=== PATIENT | male | born 1990 | race Caucasian/White ===

== ENCOUNTER 2016-11-26 13:59 | Inpatient (IN) | payer OTHER ==
[~2016-11-26] VITALS: Ht 175.3 cm; Wt 59.4 kg
[~2016-11-26 13:59] MED LIST: BG MC; GLU850 PO; LAC PO; LEV500 PO; LEVEMIR100 U/M1 SQ
[2016-11-26 14:55] LABS: RED CELL DISTRIBUTION WIDTH 13.5 % (11.5-14.5)
[2016-11-26 15:26] LABS: BASOPHIL % 0 % (0-2); PLATELET COUNT 410 x10^3mcL (130-400)
[2016-11-26 15:28] LABS: ALKALINE PHOSPHATASE 192 U/L (46-116); ALT/SGPT 16 U/L (16-63); AST/SGOT 17 U/L (15-37); CALCIUM 8.7 mg/dL (8.5-10.1); CHLORIDE SERUM 87 mmol/L (98-107); CREATININE SERUM 0.9 mg/dL (0.7-1.3); GFR1 > 60 mL/min; MAGNESIUM 1.6 mg/dL (1.8-2.4); POTASSIUM SERUM 3.7 mmol/L (3.5-5.1); TOTAL PROTEIN, SERUM 7.2 g/dL (6.4-8.2)
[2016-11-26 15:29] LABS: ALBUMIN 2.8 g/dL (3.4-5.0)
[2016-11-26 15:31] LABS: GLUCOSE SERUM 504 mg/dL (74-106); SODIUM SERUM 122 mmol/L (136-145)
[2016-11-26 15:40] LABS: CK-MB 0.7 ng/mL (0-3.6)
[2016-11-26] MEDS ORDERED: NOVI SQ (17:27)
[2016-11-26 18:30] VITALS: BP 119/67
[2016-11-26 18:35] VITALS: Ht 175.3 cm; Wt 59.4 kg
[2016-11-26 18:36] LABS: T3 TOTAL 0.61 ng/mL
[2016-11-26 18:38] LABS: FREE T4 1.8 ng/dL (0.76-1.46); FREE THYROXINE INDEX 2.7 ug/dL (1.4-4.5); T4(THYROXINE) 7.1 ug/dL (4.7-13.3)
[2016-11-26 19:06] VITALS: BP 119/69
[2016-11-26 19:06] LABS: CHOLESTEROL/HDL RATIO 2.5
[2016-11-26 19:19] VITALS: BP 125/71
[2016-11-26 22:14] VITALS: BP 114/75
[2016-11-27 06:05] VITALS: BP 109/61
[2016-11-27 06:27] LABS: CALCIUM 7.8 mg/dL (8.5-10.1); CARBON DIOXIDE 26.1 mmol/L (21-32); CHLORIDE SERUM 101 mmol/L (98-107); CREATININE SERUM 0.6 mg/dL (0.7-1.3); GFR1 > 60 mL/min; GLUCOSE SERUM 298 mg/dL (74-106); MAGNESIUM 2.4 mg/dL (1.8-2.4); PHOSPHOROUS 3.1 mg/dL (2.5-4.9); POTASSIUM SERUM 3.2 mmol/L (3.5-5.1); SODIUM SERUM 136 mmol/L (136-145)
[2016-11-27 06:29] LABS: BASOPHIL % 0.2 % (0-2); PLATELET COUNT 357 x10^3mcL (130-400); RED CELL DISTRIBUTION WIDTH 13.6 % (11.5-14.5)
[2016-11-27 08:15] VITALS: BP 99/57
[2016-11-27 12:25] VITALS: BP 104/55
[2016-11-27 16:35] VITALS: BP 101/54
[2016-11-27 20:45] VITALS: BP 111/52
[2016-11-28 05:45] VITALS: BP 104/54
[2016-11-28 06:03] LABS: BASOPHIL % 0.3 % (0-2); PLATELET COUNT 339 x10^3mcL (130-400); RED CELL DISTRIBUTION WIDTH 13.8 % (11.5-14.5)
[2016-11-28 06:49] LABS: CALCIUM 7.5 mg/dL (8.5-10.1); CHLORIDE SERUM 103 mmol/L (98-107); CREATININE SERUM 0.6 mg/dL (0.7-1.3); GFR1 > 60 mL/min; GLUCOSE SERUM 284 mg/dL (74-106); MAGNESIUM 2.2 mg/dL (1.8-2.4); PHOSPHOROUS 3.7 mg/dL (2.5-4.9); POTASSIUM SERUM 3.5 mmol/L (3.5-5.1); SODIUM SERUM 138 mmol/L (136-145)
[2016-11-28 08:34] LABS: microscopic required? NO
[2016-11-28 09:00] VITALS: BP 107/62
[2016-11-28 09:46] LABS: urine erythrocyte NEGATIVE (NEGATIVE)
[2016-11-28 09:55] LABS: AMPHETAMINE QUAL UR POSITIVE (NEG <=1000)
[2016-11-28 13:00] VITALS: BP 118/66
[2016-11-28 17:54] VITALS: BP 119/61
[2016-11-28 22:08] VITALS: BP 107/57
[2016-11-29 06:15] VITALS: BP 110/60
[2016-11-29 06:52] LABS: BASOPHIL % 0.7 % (0-2); PLATELET COUNT 399 x10^3mcL (130-400); RED CELL DISTRIBUTION WIDTH 14.1 % (11.5-14.5)
[2016-11-29 07:07] LABS: CALCIUM 7.3 mg/dL (8.5-10.1); CARBON DIOXIDE 24.4 mmol/L (21-32); CHLORIDE SERUM 100 mmol/L (98-107); CREATININE SERUM 0.5 mg/dL (0.7-1.3); GFR1 > 60 mL/min; GLUCOSE SERUM 291 mg/dL (74-106); MAGNESIUM 1.6 mg/dL (1.8-2.4); PHOSPHOROUS 2.9 mg/dL (2.5-4.9); POTASSIUM SERUM 3.4 mmol/L (3.5-5.1); SODIUM SERUM 133 mmol/L (136-145)
== END 2016-11-29 09:21 | disposition left against medical advice (07) | DRG 720 ==
LOC: ED 13:59 → DU 16:38 → MU 11-28 18:03
PROVIDERS: Emergency Medicine; Family Medicine; ADMIT Family Medicine
DX: A41.9 Sepsis, unspecified organism (principal); J96.00 Acute respiratory failure, unspecified whether with hypoxia or hypercapnia; R65.21 Severe sepsis with septic shock; E11.00 Type 2 diabetes mellitus with hyperosmolarity without nonketotic hyperglycemic-hyperosmolar coma (NKHHC); E43 Unspecified severe protein-calorie malnutrition; R64 Cachexia; E11.622 Type 2 diabetes mellitus with other skin ulcer; L03.317 Cellulitis of buttock; L98.419 Non-pressure chronic ulcer of buttock with unspecified severity; E11.65 Type 2 diabetes mellitus with hyperglycemia; Z79.4 Long term (current) use of insulin; E87.3 Alkalosis; E87.1 Hypo-osmolality and hyponatremia; Z68.1 Body mass index [BMI] 19.9 or less, adult; N13.30 Unspecified hydronephrosis; N28.1 Cyst of kidney, acquired; E83.42 Hypomagnesemia; E87.6 Hypokalemia; Z88.0 Allergy status to penicillin; Z83.3 Family history of diabetes mellitus; Z82.49 Family history of ischemic heart disease and other diseases of the circulatory system; F17.210 Nicotine dependence, cigarettes, uncomplicated; D64.9 Anemia, unspecified
CPT/HCPCS: 36600; 80307; 82962; 83880; 84439; 90715; 94150; J1815; J1885; J1956; J2060; J2270; J2405; J3370; J3475; J3490; J7030; Q0092; Q9967

== ENCOUNTER 2016-12-05 21:06 | Inpatient (IN) | payer OTHER ==
[~2016-12-05] VITALS: Ht 177.8 cm; Wt 54.4 kg
[~2016-12-05 21:06] MED LIST changes: +NOVI SQ
[2016-12-05 22:51] LABS: PLATELET COUNT 686 x10^3mcL (130-400)
[2016-12-05 22:57] LABS: CK-MB 0.7 ng/mL (0-3.6)
[2016-12-05 23:09] LABS: ALKALINE PHOSPHATASE 173 U/L (46-116); ALT/SGPT 14 U/L (16-63); AST/SGOT 11 U/L (15-37); CARBON DIOXIDE 21.6 mmol/L (21-32); CHLORIDE SERUM 96 mmol/L (98-107); CREATININE SERUM 0.9 mg/dL (0.7-1.3); GFR1 > 60 mL/min; POTASSIUM SERUM 4.2 mmol/L (3.5-5.1); SODIUM SERUM 127 mmol/L (136-145)
[2016-12-05 23:13] LABS: ALBUMIN 2.7 g/dL (3.4-5.0); ATYPICAL LYMPH 2 %; BAND NEUTROPHIL 5 % (0-10); METAMYELOCTE 1 % (0-2); MONOCYTE 2 % (0-7); MYELOCYTE 1 % (0-2); SEGMENTED NEUTROPHILS 83 % (37-75); TOTAL PROTEIN, SERUM 3.7 g/dL (6.4-8.2)
[2016-12-05 23:14] LABS: rbc morphology (normal/abnorm) NORMAL (NORMAL)
[2016-12-05 23:15] LABS: GLUCOSE SERUM 671 mg/dL (74-106)
[2016-12-06] VITALS (7 sets, daily range): BP systolic 94–111; BP diastolic 53–74
[2016-12-06 02:31] LABS: CHOLESTEROL/HDL RATIO 1.6
[2016-12-06 02:38] LABS: FREE T4 1.42 ng/dL (0.76-1.46); T3 TOTAL 0.77 ng/mL
[2016-12-06 02:58] LABS: FREE THYROXINE INDEX 2.5 ug/dL (1.4-4.5); T4(THYROXINE) 6.8 ug/dL (4.7-13.3)
[2016-12-06 05:45] LABS: RED CELL DISTRIBUTION WIDTH 14.1 % (11.5-14.5)
[2016-12-06 05:55] LABS: BASOPHIL % 0 % (0-2); PLATELET COUNT 611 x10^3mcL (130-400)
[2016-12-06 06:03] LABS: CALCIUM 7.7 mg/dL (8.5-10.1); CARBON DIOXIDE 22.7 mmol/L (21-32); CHLORIDE SERUM 105 mmol/L (98-107); CREATININE SERUM 0.4 mg/dL (0.7-1.3); GFR1 > 60 mL/min; GLUCOSE SERUM 208 mg/dL (74-106); MAGNESIUM 1.6 mg/dL (1.8-2.4); PHOSPHOROUS 2.4 mg/dL (2.5-4.9); POTASSIUM SERUM 3.6 mmol/L (3.5-5.1); SODIUM SERUM 134 mmol/L (136-145)
[2016-12-06 17:52] LABS: UA SPECIFIC GRAVITY >=1.030 (1.005-1.035); urine erythrocyte NEGATIVE (NEGATIVE)
[2016-12-06 18:03] LABS: microscopic required? YES
[2016-12-06 18:12] LABS: AMPHETAMINE QUAL UR POSITIVE (NEG <=1000)
[2016-12-07 06:14] VITALS: BP 102/59
[2016-12-07 09:52] VITALS: BP 95/53
[2016-12-07 13:51] VITALS: BP 95/59
[2016-12-07 17:17] VITALS: BP 96/50
[2016-12-07 21:51] VITALS: BP 93/53
[2016-12-08 05:39] VITALS: BP 104/54
[2016-12-08 06:48] LABS: BASOPHIL % 0.3 % (0-2); RED CELL DISTRIBUTION WIDTH 14.1 % (11.5-14.5)
[2016-12-08 06:50] LABS: CALCIUM 8.1 mg/dL (8.5-10.1); CARBON DIOXIDE 27.4 mmol/L (21-32); CHLORIDE SERUM 103 mmol/L (98-107); CREATININE SERUM 0.5 mg/dL (0.7-1.3); GFR1 > 60 mL/min; GLUCOSE SERUM 315 mg/dL (74-106); MAGNESIUM 1.7 mg/dL (1.8-2.4); PHOSPHOROUS 3.3 mg/dL (2.5-4.9); PLATELET COUNT 641 x10^3mcL (130-400); POTASSIUM SERUM 4.1 mmol/L (3.5-5.1); SODIUM SERUM 139 mmol/L (136-145)
[2016-12-08 08:40] VITALS: BP 91/55
[2016-12-08 17:00] VITALS: BP 101/63
[2016-12-08 21:21] VITALS: BP 108/56
[2016-12-09 06:24] VITALS: BP 100/50
[2016-12-09 06:40] LABS: CALCIUM 7.7 mg/dL (8.5-10.1); CARBON DIOXIDE 28.8 mmol/L (21-32); CHLORIDE SERUM 104 mmol/L (98-107); CREATININE SERUM 0.5 mg/dL (0.7-1.3); GFR1 > 60 mL/min; GLUCOSE SERUM 316 mg/dL (74-106); POTASSIUM SERUM 4.6 mmol/L (3.5-5.1); SODIUM SERUM 139 mmol/L (136-145)
[2016-12-09 06:53] LABS: BASOPHIL % 0.4 % (0-2); RED CELL DISTRIBUTION WIDTH 14.2 % (11.5-14.5)
[2016-12-09 07:16] LABS: PLATELET COUNT 576 x10^3mcL (130-400)
[2016-12-09 10:30] VITALS: BP 93/51
[2016-12-09 19:00] VITALS: BP 97/58
[2016-12-09 21:51] VITALS: BP 94/58
[2016-12-10 05:18] VITALS: BP 90/53
[2016-12-10 06:12] LABS: BASOPHIL % 0.4 % (0-2); CALCIUM 8.2 mg/dL (8.5-10.1); CARBON DIOXIDE 29.7 mmol/L (21-32); CHLORIDE SERUM 107 mmol/L (98-107); CREATININE SERUM 0.4 mg/dL (0.7-1.3); GFR1 > 60 mL/min; GLUCOSE SERUM 64 mg/dL (74-106); POTASSIUM SERUM 3.7 mmol/L (3.5-5.1); RED CELL DISTRIBUTION WIDTH 14.3 % (11.5-14.5); SODIUM SERUM 143 mmol/L (136-145)
[2016-12-10 07:34] LABS: PLATELET COUNT 615 x10^3mcL (130-400)
[2016-12-10 08:35] VITALS: BP 88/47
[2016-12-10 11:25] VITALS: BP 92/58
[2016-12-10 18:42] VITALS: BP 103/64
[2016-12-10 20:31] VITALS: BP 98/59
[2016-12-11 05:54] VITALS: BP 99/60
[2016-12-11 06:08] LABS: BASOPHIL % 0.5 % (0-2)
[2016-12-11 06:19] LABS: CARBON DIOXIDE 30.3 mmol/L (21-32); CHLORIDE SERUM 104 mmol/L (98-107); CREATININE SERUM 0.5 mg/dL (0.7-1.3); GFR1 > 60 mL/min; GLUCOSE SERUM 114 mg/dL (74-106); POTASSIUM SERUM 3.9 mmol/L (3.5-5.1); SODIUM SERUM 139 mmol/L (136-145)
[2016-12-11 06:35] LABS: PLATELET COUNT 544 x10^3mcL (130-400); RED CELL DISTRIBUTION WIDTH 14.7 % (11.5-14.5)
[2016-12-11 09:24] VITALS: BP 95/57
[2016-12-11] MEDS ORDERED: LEV250 PO (09:28)
[2016-12-11] MEDS ORDERED: THERA TABS1 TAB PO (09:29)
[2016-12-11] MEDS ORDERED: CLEOCIN HCL300 MG PO (09:29)
[2016-12-11] MEDS ORDERED: LAC PO (09:30)
[2016-12-11] MEDS ORDERED: VITC PO (09:31)
[2016-12-11] MEDS ORDERED: NORCO1 TA2 PO (09:32)
[2016-12-11] MEDS ORDERED: COL100 PO (09:32)
[2016-12-11 12:12] VITALS: BP 95/57
[2016-12-11] MEDS ORDERED: VIBRAMYCIN HYC100 MG PO (12:47)
== END 2016-12-11 13:40 | disposition home health service (06) | DRG 720 ==
LOC: ED 21:06 → IC 12-06 00:33 → MU 12-06 00:33 → DU 12-06 00:33 → IC 12-06 01:11 → DU 12-06 12:51 → MU 12-07 11:18
PROVIDERS: Emergency Medicine; Surgery; ADMIT Family Medicine
PROC: B543ZZA Ultrasonography of Right Jugular Veins, Guidance (ICD-10-PCS; 2016-12-06)
PROC: 0JB90ZZ Excision of Buttock Subcutaneous Tissue and Fascia, Open Approach (ICD-10-PCS; 2016-12-06)
PROC: 05HM33Z Insertion of Infusion Device into Right Internal Jugular Vein, Percutaneous Approach (ICD-10-PCS; principal; 2016-12-06 11:00)
PROC: 0JB90ZZ Excision of Buttock Subcutaneous Tissue and Fascia, Open Approach (ICD-10-PCS; 2016-12-08)
DX: A41.9 Sepsis, unspecified organism (principal); N17.0 Acute kidney failure with tubular necrosis; M72.6 Necrotizing fasciitis; E43 Unspecified severe protein-calorie malnutrition; D68.69 Other thrombophilia; E11.51 Type 2 diabetes mellitus with diabetic peripheral angiopathy without gangrene; E11.65 Type 2 diabetes mellitus with hyperglycemia; E87.1 Hypo-osmolality and hyponatremia; R65.20 Severe sepsis without septic shock; L02.31 Cutaneous abscess of buttock; F15.10 Other stimulant abuse, uncomplicated; D47.3 Essential (hemorrhagic) thrombocythemia; E83.51 Hypocalcemia; Z83.3 Family history of diabetes mellitus; Z82.49 Family history of ischemic heart disease and other diseases of the circulatory system; Z87.891 Personal history of nicotine dependence
CPT/HCPCS: 36556; 36600; 80307; 82962; 83880; 84439; 94150; J1170; J1580; J1642; J1815; J1956; J2001; J2175; J2250; J2270; J3010; J3370; J3475; J3490; J7030; J7040; J7042; J7050; Q0092

== ENCOUNTER 2016-12-20 21:27 | Emergency (ER) | payer OTHER ==
[~2016-12-20 21:27] MED LIST changes: +CLEOCIN HCL300 MG PO; +COL100 PO; +LEV250 PO; +NORCO1 TA2 PO; +THERA TABS1 TAB PO; +VIBRAMYCIN HYC100 MG PO; +VITC PO
[2016-12-20 22:46] LABS: BASOPHIL % 0.8 % (0-2); PLATELET COUNT 373 x10^3mcL (130-400)
[2016-12-20 22:48] LABS: RED CELL DISTRIBUTION WIDTH 15.8 % (11.5-14.5)
[2016-12-20 22:55] LABS: CALCIUM 7.9 mg/dL (8.5-10.1); CARBON DIOXIDE 28.9 mmol/L (21-32); CHLORIDE SERUM 101 mmol/L (98-107); CREATININE SERUM 0.6 mg/dL (0.7-1.3); GFR1 > 60 mL/min; GLUCOSE SERUM 360 mg/dL (74-106); POTASSIUM SERUM 4.2 mmol/L (3.5-5.1); SODIUM SERUM 134 mmol/L (136-145)
[2016-12-20 22:59] LABS: ALKALINE PHOSPHATASE 127 U/L (46-116); ALT/SGPT 23 U/L (16-63); AST/SGOT 19 U/L (15-37); BILIRUBIN TOTAL 0.19 mg/dL (0.20-1.00)
[2016-12-20 23:00] LABS: ALBUMIN 2.6 g/dL (3.4-5.0); TOTAL PROTEIN, SERUM 5.9 g/dL (6.4-8.2)
[2016-12-21 00:15] VITALS: BP 108/73
== END 2016-12-21 00:15 | disposition home or self-care (01) ==
LOC: ED 21:27
PROVIDERS: Emergency Medicine
DX: L02.31 Cutaneous abscess of buttock (principal); E11.65 Type 2 diabetes mellitus with hyperglycemia; Z79.4 Long term (current) use of insulin; Z87.01 Personal history of pneumonia (recurrent); Z88.0 Allergy status to penicillin
CPT/HCPCS: 82962; J1815; J7030

== ENCOUNTER 2016-12-27 19:10 | Inpatient (IN) | payer OTHER ==
[~2016-12-27] VITALS: Ht 177.8 cm; Wt 63.5 kg
[2016-12-27 23:24] LABS: BASOPHIL % 0.6 % (0-2); PLATELET COUNT 327 x10^3mcL (130-400)
[2016-12-27 23:25] LABS: RED CELL DISTRIBUTION WIDTH 15.4 % (11.5-14.5)
[2016-12-27 23:53] LABS: ALBUMIN 3.1 g/dL (3.4-5.0); ALKALINE PHOSPHATASE 173 U/L (46-116); ALT/SGPT 30 U/L (16-63); AST/SGOT 14 U/L (15-37); BILIRUBIN TOTAL 0.3 mg/dL (0.20-1.00); CALCIUM 8.3 mg/dL (8.5-10.1); CARBON DIOXIDE 30.4 mmol/L (21-32); CHLORIDE SERUM 94 mmol/L (98-107); CREATININE SERUM 0.8 mg/dL (0.7-1.3); GFR1 > 60 mL/min; SODIUM SERUM 133 mmol/L (136-145); TOTAL PROTEIN, SERUM 6.5 g/dL (6.4-8.2)
[2016-12-27 23:55] LABS: GLUCOSE SERUM 506 mg/dL (74-106)
[2016-12-28 03:38] VITALS: BP 111/63
[2016-12-28 04:09] LABS: BASOPHIL % 0.4 % (0-2); PLATELET COUNT 294 x10^3mcL (130-400)
[2016-12-28 04:16] LABS: T3 TOTAL 0.79 ng/mL
[2016-12-28 04:20] LABS: FREE THYROXINE INDEX 0.7 ug/dL (1.4-4.5); T4(THYROXINE) 1.2 ug/dL (4.7-13.3)
[2016-12-28 04:21] LABS: FREE T4 < 0.1 ng/dL (0.76-1.46)
[2016-12-28 04:21] LABS: RED CELL DISTRIBUTION WIDTH 15.5 % (11.5-14.5)
[2016-12-28 04:26] LABS: ALBUMIN 2.9 g/dL (3.4-5.0); CARBON DIOXIDE 29.9 mmol/L (21-32); CHLORIDE SERUM 104 mmol/L (98-107); CREATININE SERUM 0.6 mg/dL (0.7-1.3); GFR1 > 60 mL/min; GLUCOSE SERUM 339 mg/dL (74-106); POTASSIUM SERUM 3.5 mmol/L (3.5-5.1); SODIUM SERUM 137 mmol/L (136-145)
[2016-12-28 04:30] LABS: MAGNESIUM 1.9 mg/dL (1.8-2.4); PHOSPHOROUS 3.3 mg/dL (2.5-4.9)
[2016-12-28 04:32] LABS: CHOLESTEROL/HDL RATIO 1.6
[2016-12-28 05:21] LABS: microscopic required? NO
[2016-12-28 05:59] LABS: UA SPECIFIC GRAVITY 1.015 (1.005-1.035); urine erythrocyte NEGATIVE (NEGATIVE)
[2016-12-28 06:04] LABS: AMPHETAMINE QUAL UR POSITIVE (NEG <=1000)
[2016-12-28 09:17] VITALS: BP 101/50
[2016-12-28 12:23] VITALS: BP 97/55
[2016-12-28 13:54] LABS: FREE T4 1.32 ng/dL (0.76-1.46); T4(THYROXINE) 7.8 ug/dL (4.7-13.3)
[2016-12-28 14:00] VITALS: BP 98/63
[2016-12-28 14:25] LABS: T3 TOTAL 0.8 ng/mL
[2016-12-28 16:27] VITALS: Ht 177.8 cm; Wt 63.5 kg
[2016-12-28 18:00] VITALS: BP 105/66
[2016-12-28 20:58] VITALS: BP 90/55
[2016-12-29 05:16] VITALS: BP 103/60
[2016-12-29 09:00] VITALS: BP 104/60
[2016-12-29 16:36] VITALS: BP 101/57
[2016-12-29 22:18] VITALS: BP 91/53
[2016-12-30 06:08] VITALS: BP 105/69
[2016-12-30] MEDS ORDERED: ACETAMINOPHEN-H1 TA1 PO (11:01)
[2016-12-30] MEDS ORDERED: COL100 PO (11:02)
[2016-12-30 11:05] VITALS: BP 103/68
[2016-12-30] MEDS ORDERED: BACTRIM DS1 TAB PO (11:16)
[2016-12-30] MEDS ORDERED: CLINDAMYCIN HC300 MG PO (11:18)
[2016-12-30] MEDS ORDERED: LAC PO (11:20)
[2016-12-30 14:32] VITALS: BP 103/68
[2016-12-30] MEDS ORDERED: GLU850 PO (15:41)
[2016-12-30] MEDS ORDERED: LEVEMIR100 U/M1 SQ (15:43)
[2016-12-30] MEDS ORDERED: TEST STRIPS1 EACH MC (15:45)
[2016-12-30] MEDS ORDERED: LANCET DEVICE1 EACH MC (15:46)
[2016-12-30] MEDS ORDERED: VITC PO (15:47)
[2016-12-30 17:46] VITALS: BP 100/59
[2016-12-30 20:39] VITALS: BP 109/62
[2016-12-31 05:08] VITALS: BP 100/70
[2016-12-31 17:50] VITALS: BP 100/70
== END 2016-12-31 18:15 | disposition home or self-care (01) | DRG 791 ==
LOC: ED 19:10 → MU 12-28 01:10 → DU 12-28 01:10 → MU 12-29 05:52
PROVIDERS: Emergency Medicine; Surgery; ADMIT Family Medicine
PROC: 0JQ90ZZ Repair Buttock Subcutaneous Tissue and Fascia, Open Approach (ICD-10-PCS; principal; 2016-12-28 10:00)
DX: T81.32XA Disruption of internal operation (surgical) wound, not elsewhere classified, initial encounter (principal); D68.69 Other thrombophilia; E11.42 Type 2 diabetes mellitus with diabetic polyneuropathy; E44.0 Moderate protein-calorie malnutrition; E11.65 Type 2 diabetes mellitus with hyperglycemia; E87.1 Hypo-osmolality and hyponatremia; E87.8 Other disorders of electrolyte and fluid balance, not elsewhere classified; E83.51 Hypocalcemia; D63.8 Anemia in other chronic diseases classified elsewhere; F15.10 Other stimulant abuse, uncomplicated; Z79.4 Long term (current) use of insulin; Z68.20 Body mass index [BMI] 20.0-20.9, adult; Z79.84 Long term (current) use of oral hypoglycemic drugs; Z22.322 Carrier or suspected carrier of Methicillin resistant Staphylococcus aureus; Z91.19 Patient's noncompliance with other medical treatment and regimen; Z88.0 Allergy status to penicillin; Z83.3 Family history of diabetes mellitus; Z82.49 Family history of ischemic heart disease and other diseases of the circulatory system
CPT/HCPCS: 82962; 83880; 84439; J1815; J2175; J2250; J2270; J2405; J3010; J3490; J7030; Q0092

== ENCOUNTER 2017-02-02 01:59 | Emergency (ER) | payer OTHER ==
[~2017-02-02] VITALS: Ht 177.8 cm; Wt 63.5 kg
[~2017-02-02 01:59] MED LIST changes: +ACETAMINOPHEN-H1 TA1 PO; +BACTRIM DS1 TAB PO; +CLINDAMYCIN HC300 MG PO; +LANCET DEVICE1 EACH MC; +TEST STRIPS1 EACH MC
[2017-02-02 02:40] LABS: BASOPHIL % 0.4 % (0-2); PLATELET COUNT 268 x10^3mcL (130-400)
[2017-02-02 02:43] LABS: RED CELL DISTRIBUTION WIDTH 15.1 % (11.5-14.5)
[2017-02-02 02:47] LABS: CALCIUM 8.7 mg/dL (8.5-10.1); CARBON DIOXIDE 26.8 mmol/L (21-32); CHLORIDE SERUM 99 mmol/L (98-107); CREATININE SERUM 0.5 mg/dL (0.7-1.3); GFR1 > 60 mL/min; GLUCOSE SERUM 295 mg/dL (74-106); POTASSIUM SERUM 4.3 mmol/L (3.5-5.1); SODIUM SERUM 132 mmol/L (136-145)
[2017-02-02 02:51] LABS: ALBUMIN 3.8 g/dL (3.4-5.0); ALKALINE PHOSPHATASE 107 U/L (46-116); ALT/SGPT 25 U/L (16-63); AST/SGOT 15 U/L (15-37); BILIRUBIN TOTAL 0.26 mg/dL (0.20-1.00); LIPASE 113 IU/L (73-393); TOTAL PROTEIN, SERUM 6.8 g/dL (6.4-8.2)
[2017-02-02 02:52] LABS: C REACTIVE PROTEIN < 0.2 mg/dL (<=0.9)
[2017-02-02 04:31] LABS: ERYTHROCYTE SED RATE 12 mm/hr (0-15)
[2017-02-02 07:16] VITALS: BP 108/73
== END 2017-02-02 07:17 | disposition home or self-care (01) ==
LOC: ED 01:59
PROVIDERS: Emergency Medicine
DX: M54.41 Lumbago with sciatica, right side (principal); E11.65 Type 2 diabetes mellitus with hyperglycemia; L02.31 Cutaneous abscess of buttock
CPT/HCPCS: J1885; J2270; J2405; J2930; J7030

== ENCOUNTER 2017-04-19 21:57 | Emergency (ER) | payer OTHER ==
[~2017-04-19] VITALS: Ht 177.8 cm; Wt 63.5 kg
[2017-04-20 01:09] LABS: BASOPHIL % 0.3 % (0-2); PLATELET COUNT 317 x10^3mcL (130-400); RED CELL DISTRIBUTION WIDTH 14.2 % (11.5-14.5)
[2017-04-20 01:35] LABS: ALKALINE PHOSPHATASE 132 U/L (46-116); ALT/SGPT 18 U/L (16-63); AST/SGOT 12 U/L (15-37); BILIRUBIN TOTAL 0.4 mg/dL (0.20-1.00); CALCIUM 8.9 mg/dL (8.5-10.1); CARBON DIOXIDE 29.9 mmol/L (21-32); CHLORIDE SERUM 103 mmol/L (98-107); CREATININE SERUM 0.5 mg/dL (0.7-1.3); GFR1 > 60 mL/min; GLUCOSE SERUM 200 mg/dL (74-106); SODIUM SERUM 140 mmol/L (136-145); TOTAL PROTEIN, SERUM 7.2 g/dL (6.4-8.2)
[2017-04-20 01:36] LABS: ALBUMIN 3.3 g/dL (3.4-5.0)
[2017-04-20 03:17] VITALS: BP 133/100
== END 2017-04-20 03:17 | disposition home or self-care (01) ==
LOC: ED 21:57
PROVIDERS: Emergency Medicine
DX: L97.929 Non-pressure chronic ulcer of unspecified part of left lower leg with unspecified severity (principal); L97.919 Non-pressure chronic ulcer of unspecified part of right lower leg with unspecified severity; E11.9 Type 2 diabetes mellitus without complications; Z79.84 Long term (current) use of oral hypoglycemic drugs; Z88.0 Allergy status to penicillin
CPT/HCPCS: 82962; J1885; J1956; J7030

== ENCOUNTER 2017-09-07 17:34 | Inpatient (IN) | payer OTHER ==
[~2017-09-07] VITALS: Ht 177.8 cm; Wt 63.7 kg
[2017-09-07 17:58] VITALS: Ht 177.8 cm; Wt 63.7 kg
[2017-09-07 19:08] LABS: BASOPHIL % 0.4 % (0-2); PLATELET COUNT 278 x10^3mcL (130-400); RED CELL DISTRIBUTION WIDTH 14.4 % (11.5-14.5)
[2017-09-07 19:30] LABS: T3 TOTAL 0.72 ng/mL
[2017-09-07 19:43] LABS: ALKALINE PHOSPHATASE 151 U/L (46-116); ALT/SGPT 17 U/L (16-63); AST/SGOT 10 U/L (15-37); BILIRUBIN TOTAL 0.3 mg/dL (0.20-1.00); CALCIUM 8.3 mg/dL (8.5-10.1); CARBON DIOXIDE 26.1 mmol/L (21-32); CHLORIDE SERUM 98 mmol/L (98-107); CREATININE SERUM 0.7 mg/dL (0.7-1.3); GFR1 > 60 mL/min; POTASSIUM SERUM 3.5 mmol/L (3.5-5.1); SODIUM SERUM 133 mmol/L (136-145); TOTAL PROTEIN, SERUM 6.3 g/dL (6.4-8.2)
[2017-09-07 19:44] LABS: ALBUMIN 3.2 g/dL (3.4-5.0)
[2017-09-07 19:45] LABS: C REACTIVE PROTEIN < 0.2 mg/dL (<=0.9); GLUCOSE SERUM 482 mg/dL (74-106)
[2017-09-07 19:50] LABS: UA SPECIFIC GRAVITY <=1.005 (1.005-1.035); microscopic required? YES; urine erythrocyte NEGATIVE (NEGATIVE)
[2017-09-07 19:53] LABS: ERYTHROCYTE SED RATE 11 mm/hr (0-15)
[2017-09-07 19:58] LABS: FREE T4 1.17 ng/dL (0.76-1.46); T4(THYROXINE) 7.8 ug/dL (4.7-13.3)
[2017-09-07 19:59] LABS: AMPHETAMINE QUAL UR NONE DETECTED (NEG <=1000)
[2017-09-07 19:59] LABS: CK-MB 1.9 ng/mL (0-3.6)
[2017-09-07 21:44] LABS: MAGNESIUM 1.4 mg/dL (1.8-2.4); PHOSPHOROUS 4.2 mg/dL (2.5-4.9)
[2017-09-07 21:47] LABS: CHOLESTEROL/HDL RATIO 1.8
[2017-09-07 22:30] VITALS: BP 123/74
[2017-09-08] MEDS ORDERED: RELION NOVOL100 U/ML SC (00:15)
[2017-09-08] MEDS ORDERED: LANTUS SOLOS100 U/M1 SC (00:16)
[2017-09-08 05:13] VITALS: BP 98/61
[2017-09-08 06:59] LABS: CALCIUM 7.7 mg/dL (8.5-10.1); CARBON DIOXIDE 24.4 mmol/L (21-32); CHLORIDE SERUM 103 mmol/L (98-107); CREATININE SERUM 0.6 mg/dL (0.7-1.3); GFR1 > 60 mL/min; GLUCOSE SERUM 342 mg/dL (74-106); PHOSPHOROUS 3.1 mg/dL (2.5-4.9); POTASSIUM SERUM 3.3 mmol/L (3.5-5.1); SODIUM SERUM 136 mmol/L (136-145)
[2017-09-08 07:13] LABS: BASOPHIL % 0.2 % (0-2); PLATELET COUNT 242 x10^3mcL (130-400); RED CELL DISTRIBUTION WIDTH 14.3 % (11.5-14.5)
[2017-09-08 10:33] VITALS: BP 116/73
[2017-09-08 14:42] VITALS: BP 111/67
[2017-09-08 17:15] VITALS: BP 122/87
[2017-09-08 22:24] VITALS: BP 104/58
[2017-09-09 06:27] VITALS: BP 113/79
[2017-09-09 06:37] LABS: BASOPHIL % 0.4 % (0-2); CALCIUM 8.5 mg/dL (8.5-10.1); CARBON DIOXIDE 29.3 mmol/L (21-32); CHLORIDE SERUM 104 mmol/L (98-107); CREATININE SERUM 0.5 mg/dL (0.7-1.3); GFR1 > 60 mL/min; GLUCOSE SERUM 182 mg/dL (74-106); MAGNESIUM 1.7 mg/dL (1.8-2.4); PLATELET COUNT 244 x10^3mcL (130-400); POTASSIUM SERUM 3.5 mmol/L (3.5-5.1); RED CELL DISTRIBUTION WIDTH 14.8 % (11.5-14.5); SODIUM SERUM 139 mmol/L (136-145)
[2017-09-09] MEDS ORDERED: LAC PO (09:17)
[2017-09-09] MEDS ORDERED: LEVAQUIN750 MG PO (09:17)
[2017-09-09] MEDS ORDERED: GLU500 PO (09:18)
[2017-09-09 10:02] VITALS: BP 121/83
[2017-09-09 12:00] VITALS: BP 121/83
[2017-09-09] MEDS ORDERED: BACO TOP (12:30)
[2017-09-09] MEDS ORDERED: HIBICLENS118 ML TOP (12:30)
[2017-09-09] MEDS ORDERED: LACTULOSE10 GM/152 PO (13:20)
== END 2017-09-09 13:17 | disposition home or self-care (01) | DRG 383 ==
LOC: ED 17:34 → DU 20:31
PROVIDERS: Family Medicine; Specialist
DX: L02.31 Cutaneous abscess of buttock (principal); E10.65 Type 1 diabetes mellitus with hyperglycemia; N39.0 Urinary tract infection, site not specified; E83.42 Hypomagnesemia; Z59.0 Homelessness; E87.6 Hypokalemia; F17.210 Nicotine dependence, cigarettes, uncomplicated; Z88.0 Allergy status to penicillin; Z87.01 Personal history of pneumonia (recurrent); Z82.49 Family history of ischemic heart disease and other diseases of the circulatory system; Z83.3 Family history of diabetes mellitus
CPT/HCPCS: 36600; 82962; 83880; 84439; G0480; J1815; J1956; J3475; J3480; J3490; J7030; J7042; Q0092

== ENCOUNTER 2018-04-14 08:37 | Emergency (ER) | payer OTHER ==
[~2018-04-14] VITALS: Ht 177.8 cm; Wt 69.1 kg
[~2018-04-14 08:37] MED LIST changes: +BACO TOP; +GLU500 PO; +HIBICLENS118 ML TOP; +LACTULOSE10 GM/152 PO; +LANTUS SOLOS100 U/M1 SC; +LEVAQUIN750 MG PO; +RELION NOVOL100 U/ML SC
[2018-04-14 08:42] VITALS: BP 132/96; Ht 177.8 cm; Wt 69.1 kg
== END 2018-04-14 09:32 | disposition home or self-care (01) ==
LOC: ED 08:37
DX: L02.212 Cutaneous abscess of back [any part, except buttock and flank] (principal); Z88.0 Allergy status to penicillin; E11.9 Type 2 diabetes mellitus without complications
CPT/HCPCS: J8597

== ENCOUNTER 2018-04-20 18:40 | Inpatient (IN) | payer OTHER ==
[~2018-04-20] VITALS: Ht 175.3 cm; Wt 71.0 kg
[2018-04-20 20:00] LABS: BASOPHIL % 0.3 % (0-2); PLATELET COUNT 427 x10^3mcL (130-400); RED CELL DISTRIBUTION WIDTH 14.3 % (11.5-14.5)
[2018-04-20 20:03] LABS: CALCIUM 8.6 mg/dL (8.5-10.1); CARBON DIOXIDE 28.6 mmol/L (21-32); CHLORIDE SERUM 87 mmol/L (98-107); CREATININE SERUM 1.1 mg/dL (0.7-1.3); GFR1 > 60 mL/min; GLUCOSE SERUM 372 mg/dL (74-106); SODIUM SERUM 128 mmol/L (136-145)
[2018-04-20 20:08] LABS: ALKALINE PHOSPHATASE 160 U/L (46-116); AST/SGOT 5 U/L (15-37); BILIRUBIN TOTAL 0.44 mg/dL (0.20-1.00)
[2018-04-20 20:09] LABS: ALBUMIN 3.3 g/dL (3.4-5.0); TOTAL PROTEIN, SERUM 8.3 g/dL (6.4-8.2)
[2018-04-20 20:20] LABS: ALT/SGPT 13 U/L (16-63)
[2018-04-20 21:19] LABS: UA SPECIFIC GRAVITY <=1.005 (1.005-1.035); microscopic required? YES; urine erythrocyte 2+ (NEGATIVE)
[2018-04-20] MEDS ORDERED: NOVOLOG FLEX100 U/M1 SC (21:56)
[2018-04-20] MEDS ORDERED: LANTUS SOLOS100 U/M1 SQ (21:57)
[2018-04-20 23:33] VITALS: BP 114/76
[2018-04-20 23:41] VITALS: Ht 175.3 cm; Wt 71.0 kg
[2018-04-21 01:01] LABS: AMPHETAMINE QUAL UR POSITIVE (See below)
[2018-04-21 01:03] LABS: MAGNESIUM 1.5 mg/dL (1.8-2.4)
[2018-04-21 01:10] LABS: CHOLESTEROL/HDL RATIO 2.7
[2018-04-21 05:30] VITALS: BP 122/62
[2018-04-21 09:24] VITALS: BP 101/55
[2018-04-21 12:18] VITALS: BP 120/76
[2018-04-21 13:14] LABS: ALKALINE PHOSPHATASE 154 U/L (46-116); ALT/SGPT 12 U/L (16-63); AST/SGOT 11 U/L (15-37); BILIRUBIN TOTAL 0.23 mg/dL (0.20-1.00); CALCIUM 7.9 mg/dL (8.5-10.1); CARBON DIOXIDE 27.9 mmol/L (21-32); CHLORIDE SERUM 97 mmol/L (98-107); CREATININE SERUM 0.7 mg/dL (0.7-1.3); GFR1 > 60 mL/min; GLUCOSE SERUM 315 mg/dL (74-106); MAGNESIUM 1.6 mg/dL (1.8-2.4); SODIUM SERUM 131 mmol/L (136-145); TOTAL PROTEIN, SERUM 6.8 g/dL (6.4-8.2)
[2018-04-21 13:15] LABS: ALBUMIN 2.5 g/dL (3.4-5.0)
[2018-04-21 17:05] VITALS: BP 99/61
[2018-04-21 21:43] VITALS: BP 111/56
[2018-04-22 05:08] VITALS: BP 105/52
[2018-04-22 09:17] LABS: CALCIUM 7.9 mg/dL (8.5-10.1); CARBON DIOXIDE 28.2 mmol/L (21-32); CHLORIDE SERUM 98 mmol/L (98-107); CREATININE SERUM 0.7 mg/dL (0.7-1.3); GFR1 > 60 mL/min; GLUCOSE SERUM 290 mg/dL (74-106); POTASSIUM SERUM 3.3 mmol/L (3.5-5.1); SODIUM SERUM 132 mmol/L (136-145)
[2018-04-22 09:23] LABS: BASOPHIL % 0.1 % (0-2); PLATELET COUNT 330 x10^3mcL (130-400); RED CELL DISTRIBUTION WIDTH 14.5 % (11.5-14.5)
[2018-04-22 09:28] VITALS: BP 108/68
[2018-04-22 12:23] VITALS: BP 116/74
[2018-04-22 17:11] VITALS: BP 129/78
[2018-04-22 20:44] VITALS: BP 100/56
[2018-04-23 04:58] VITALS: BP 119/65
[2018-04-23 08:35] LABS: BASOPHIL % 0.3 % (0-2); CALCIUM 7.9 mg/dL (8.5-10.1); CARBON DIOXIDE 25.5 mmol/L (21-32); CHLORIDE SERUM 99 mmol/L (98-107); CREATININE SERUM 0.6 mg/dL (0.7-1.3); GFR1 > 60 mL/min; GLUCOSE SERUM 248 mg/dL (74-106); PLATELET COUNT 371 x10^3mcL (130-400); POTASSIUM SERUM 3.1 mmol/L (3.5-5.1); RED CELL DISTRIBUTION WIDTH 13.9 % (11.5-14.5); SODIUM SERUM 133 mmol/L (136-145)
[2018-04-23 08:55] VITALS: BP 110/60
[2018-04-23 20:41] VITALS: BP 116/70
[2018-04-24 05:57] VITALS: BP 107/63
[2018-04-24 07:02] LABS: CALCIUM 7.9 mg/dL (8.5-10.1); CARBON DIOXIDE 23.4 mmol/L (21-32); CHLORIDE SERUM 100 mmol/L (98-107); CREATININE SERUM 0.6 mg/dL (0.7-1.3); GFR1 > 60 mL/min; GLUCOSE SERUM 255 mg/dL (74-106); POTASSIUM SERUM 4.1 mmol/L (3.5-5.1); SODIUM SERUM 134 mmol/L (136-145)
[2018-04-24 07:17] LABS: BASOPHIL % 0.3 % (0-2); RED CELL DISTRIBUTION WIDTH 14.2 % (11.5-14.5)
[2018-04-24 07:20] LABS: PLATELET COUNT 423 x10^3mcL (130-400)
[2018-04-24 09:27] VITALS: BP 106/62
[2018-04-24 17:23] VITALS: BP 123/75
[2018-04-24 21:19] VITALS: BP 110/64
[2018-04-25 04:59] VITALS: BP 118/66
[2018-04-25 09:05] VITALS: BP 111/65
[2018-04-25 14:06] LABS: BASOPHIL % 0.2 % (0-2)
[2018-04-25 14:13] LABS: PLATELET COUNT 414 x10^3mcL (130-400); RED CELL DISTRIBUTION WIDTH 15.4 % (11.5-14.5)
[2018-04-25 14:26] LABS: CALCIUM 7.8 mg/dL (8.5-10.1); CARBON DIOXIDE 28.9 mmol/L (21-32); CHLORIDE SERUM 100 mmol/L (98-107); CREATININE SERUM 0.6 mg/dL (0.7-1.3); GFR1 > 60 mL/min; GLUCOSE SERUM 224 mg/dL (74-106); POTASSIUM SERUM 3.4 mmol/L (3.5-5.1); SODIUM SERUM 135 mmol/L (136-145)
[2018-04-25 15:50] VITALS: BP 111/65
[2018-04-25 17:06] VITALS: BP 108/63
[2018-04-25] MEDS ORDERED: VAN1I IV (18:29)
[2018-04-25] MEDS ORDERED: DIF100 PO (18:29)
== END 2018-04-25 20:47 | DRG 720 ==
LOC: ED 18:40 → MU 22:09 → DU 22:09 → MU 04-22 13:33 → DU 04-22 13:44 → MU 04-25 20:47
PROVIDERS: Emergency Medicine; Family Medicine
PROC: 0H96XZZ Drainage of Back Skin, External Approach (ICD-10-PCS; principal; 2018-04-20)
DX: A41.9 Sepsis, unspecified organism (principal); N17.0 Acute kidney failure with tubular necrosis; E87.1 Hypo-osmolality and hyponatremia; D68.69 Other thrombophilia; E11.65 Type 2 diabetes mellitus with hyperglycemia; G90.8 Other disorders of autonomic nervous system; L02.818 Cutaneous abscess of other sites; R65.20 Severe sepsis without septic shock; E87.6 Hypokalemia; F15.10 Other stimulant abuse, uncomplicated; F17.210 Nicotine dependence, cigarettes, uncomplicated; B95.62 Methicillin resistant Staphylococcus aureus infection as the cause of diseases classified elsewhere; B37.49 Other urogenital candidiasis; R80.9 Proteinuria, unspecified; F12.10 Cannabis abuse, uncomplicated; F32.9 Major depressive disorder, single episode, unspecified; D64.9 Anemia, unspecified; Z59.0 Homelessness; Z68.23 Body mass index [BMI] 23.0-23.9, adult; Z88.0 Allergy status to penicillin; Z23 Encounter for immunization; Z79.899 Other long term (current) drug therapy; Z79.84 Long term (current) use of oral hypoglycemic drugs; Z82.49 Family history of ischemic heart disease and other diseases of the circulatory system; Z83.3 Family history of diabetes mellitus
CPT/HCPCS: 36600; 82962; 90715; 97110-GP; 97116-GP; J0696; J1815; J1885; J1956; J2001; J3370; J3490; J7030; J7050; Q0092